=== PATIENT | male | born 1970 | race Caucasian/White ===

== ENCOUNTER 2019-11-04 07:26 | Outpatient (CLI) | payer BC, SELFPAY ==
[2019-11-06 15:39] LABS: Patient Race White; SARS-CoV-2 RNA Undetected (Undetected); SARS-CoV-2 Specimen Source Nasopharynx
== END 2019-11-04 07:46 ==
PROVIDERS: PCP Internal Medicine; Visit Provider Internal Medicine
DX: Z11.59 Encounter for screening for other viral diseases (principal)
CPT/HCPCS: U0003

== ENCOUNTER 2020-10-02 16:21 | Outpatient (REF) | payer BC, SELFPAY ==
[2020-10-04 12:44] LABS: Helicobacter pylori Ag, Feces Negative (Negative)
== END 2020-10-02 16:22 | disposition home or self-care (01) ==
LOC: NCHCN 16:21
PROVIDERS: PCP Internal Medicine; Visit Provider Family Medicine
DX: Z00.00 Encounter for general adult medical examination without abnormal findings (principal); K21.9 Gastro-esophageal reflux disease without esophagitis
CPT/HCPCS: 87338